=== PATIENT | male | born 2000 | race Caucasian/White ===

== ENCOUNTER → 2019-06-23 | Outpatient (REF) ==
--- NOTE | 2019-06-23 16:38 | Diagnostic Imaging Report ---
INDICATION: Left knee injury with pain and swelling. AP, oblique and lateral views of the left knee are obtained. FINDINGS: No acute fracture or dislocation is identified. No abnormal lytic or sclerotic focus is seen, and there is no radiopaque foreign body. IMPRESSION: No acute abnormality. Dictated by: Dictated on workstation # [id number]
== END | disposition home or self-care (01) ==
LOC: OCC 16:13
PROVIDERS: ATTEND Family Medicine
CPT/HCPCS: 73562

== ENCOUNTER 2021-07-14 03:58 | Emergency (ER) | payer BC, OTHER ==
[2021-07-14] MEDS ORDERED: CIPROFLOXACIN 500 MG (CIPRO) TABLET PO STA (04:26)
--- NOTE | 2021-07-14 04:26 | ED EENT ---
History of Present Illness General Chief Complaint: COVID19 Suspect/Confirmed Stated Complaint: EAR PROBLEN/CONGESTION Nursing Triage Note: Pt states he tested positive for covid on Saturday and presents tonight with a migraine, nasal congestion, and right ear pain Source: patient Exam Limitations: no limitations History of Present Illness Date Seen by Provider: Jul 14, 2021 Time Seen by Provider: 04:07 Initial Comments 21-year-old male that was COVID +5 days ago with cough, headache, and ear pain coming in due to worsening right ear pain. He says he has a complicated history of ear infections that required multiple surgeries including tubes up to the age of [age] years old. He says he was diagnosed with an infection on Saturday. He was given a shot of steroids as well as an oral dose of amoxicillin which she is still taking. He says over the past 24 hours the pain in his right ear has worsened, is severe, throbbing, and worse anytime he coughs. Nothing seems to make it better and he is having difficulty sleeping which is why he presented to the emergency department. He denies any vision changes, difficulty breathing, chest pain, abdominal pain, nausea, vomiting, or any other concerns. Allergies and Home Medications Allergies Coded Allergies: No Known Drug Allergies (Unverified , 07/14/21) Patient Home Medication List Home Medication List Reviewed: Yes Ciprofloxacin HCl (Ciprofloxacin HCl) 500 Mg Tablet, 500 MG PO BID Prescribed by: DAVE ALVARADO on 07/14/21 0432 Review of Systems Review of Systems Constitutional: No chills, No fever Eyes: Denies Blurred Vision Ears: Pain Nose: no symptoms reported Mouth: no symptoms reported Throat: no symptoms reported Respiratory: cough Cardiovascular: no symptoms reported Gastrointestinal: no symptoms reported Musculoskeletal: no symptoms reported Skin: no symptoms reported Neurological: No Symptoms Reported Hematologic/Lymphatic: No Symptoms Reported Immunological/Allergic: no symptoms reported All Other Systems Reviewed Negative Unless Noted: Yes Past Tzmjjtv-Dtunfn-Hxllcp Hx Patient Social History Tobacco Use?: No Use of E-Cig and/or Vaping dev: Yes Use of E-Cig and/or Vaping Chris: Current Everyday User Substance use?: No Alcohol Use?: No Pt feels they are or have been: No Past Medical History Surgeries: Yes (ear tubes, sinus surgery) Physical Exam Vital Signs Vital Signs - First Documented 07/14/21 04:08 Temp 37.3 Pulse 82 Resp 18 B/P (MAP) 151/79 (103) Pulse Ox 97 O2 Delivery Room Air Height, Weight, BMI Height: '" Weight: lbs. oz. kg; BMI Method: General Appearance: WD/WN, no apparent distress Eyes: bilateral eye normal inspection, bilateral eye PERRL, bilateral eye EOMI Ears: right ear erythema, right ear swelling, right ear tenderness, right ear TM dull, right ear TM red, right ear other (pain with any manipulation of the pinna with canal swelling and redness, no mastoid tenderness); left ear auricle normal, left ear canal normal, left ear TM normal Nose: normal inspection Mouth/Throat: normal mouth inspection, pharynx normal Neck: non-tender, full range of motion, supple, normal inspection Cardiovascular: regular rate, rhythm, no edema, no murmur Respiratory: chest non-tender, lungs clear, normal breath sounds, no respiratory distress, no accessory muscle use Gastrointestinal: normal bowel sounds, non tender, soft; No distended, No guarding, No rebound Neurologic/Psychiatric: sports anchor II-XII nml as tested, no motor/sensory deficits, alert, normal mood/affect Skin: normal color, warm/dry Progress/Results/Core Measures Results/Orders My Orders Orders - DAVE ALVARADO MD Ciprofloxacin Tablet (Cipro Tablet) (07/14/21 04:26) Ketorolac Injection (Toradol Injection) (07/14/21 04:30) Ketorolac Injection (Toradol Injection) (07/14/21 04:30) Vital Signs/I&O 07/14/21 04:08 Temp 37.3 Pulse 82 Resp 18 B/P (MAP) 151/79 (103) Pulse Ox 97 O2 Delivery Room Air Blood Pressure Mean: 103 Progress Progress Note : Progress Note 21-year-old male with above history coming in with right ear pain and also being Covid positive. ABCs were intact and vitals were stable on presentation. Physical exam with what appears to be otitis externa. Given his complicated history as well as failing antibiotics for the past 5 days essentially, will cover for Pseudomonas with ciprofloxacin. Gave IM toradol here. I discussed with the patient the red box warning including the possibility for Achilles tendon rupture and recommended against significant physical activity for the next several weeks. Clinically does not look like malignant otitis externa as he is well-appearing. He additionally has no mastoid tenderness that would be concerning for any type of developing abscess or osteomyelitis. I believe the patient is stable for discharge with outpatient follow-up. He was sent home with strict return precautions. Departure Impression Primary Impression: Otitis externa Qualified Codes: H60.391 - Other infective otitis externa, right ear Additional Impression: COVID-19 Disposition: 01 HOME, SELF-CARE Condition: Stable Departure-Patient Inst. Decision time for Depature: 04:45 Referrals: NO,LOCAL PHYSICIAN (PCP/Family) Primary Care Physician Patient Instructions: Outer Ear Infection (DC), COVID-19 Overview Add. Discharge Instructions: As she is the antibiotics which she will take for the next week. I recommend against doing any significant physical activity for couple weeks afterwards as there is a theoretical risk of Achilles tendon rupture with this antibiotic. The risk is low but it has happened in some studies. Take Tylenol 1000 mg every 6 hours as well as ibuprofen 600 mg every 6 hours at least for the next 3 days. If swelling of your ear, redness of your ear, fever, or any other worsening symptoms progress after being on the antibiotics for a day, and I would want you to be seen by again. Scripts Ciprofloxacin HCl (Ciprofloxacin HCl) 500 Mg Tablet 500 MG PO BID for 7 Days, #14 TAB Prov: DAVE ALVARADO MD 07/14/21 Work/School Note: Work Release Form Date Seen in the Emergency Department: Jul 14, 2021 Return to Work: Jul 17, 2021 Restrictions: Return-No Fever (24hrs) DAVE ALVARADO MD Jul 14, 2021 04:26
[2021-07-14] MEDS ORDERED: KETOROLAC 30 MG/ML VIAL IM ONE (04:30)
[2021-07-14] MEDS ORDERED: CIPR500T5 PO (04:32)
[2021-07-14] MEDS: KETOROLAC 30 MG/ML VIAL IVP ONE ×2 (04:35→04:39)
[2021-07-14 04:39] VITALS: BP 151/79
== END 2021-07-14 04:42 | disposition home or self-care (01) ==
LOC: EDUNIT# 03:58 → ER FS 04:04
DX: U07.1 COVID-19 (principal); H60.91 Unspecified otitis externa, right ear; F17.290 Nicotine dependence, other tobacco product, uncomplicated; Z73.0 Burn-out
CPT/HCPCS: 99284